=== PATIENT | female | born 1995 | race American Indian/Alaskan Native ===

== ENCOUNTER 2021-11-29 09:49 | Emergency (ER) | payer SELFPAY ==
[2021-11-29 10:45] LABS: Basophils # (Auto) 0.1 K/mm3 (0.0-0.1); Basophils % (Auto) 0.6 % (0.0-1.8); Eosinophils % (Auto) 0.3 % (0.0-4.3); Hematocrit 36.4 % (30.3-42.9); Lymphocytes % (Auto) 12.7 % (13.4-35.0); Mean Corpuscular HGB Conc 33 % (30-34); Mean Corpuscular Volume 89 fl (79-97); Monocytes # (Auto) 1.1 K/mm3 (0.0-0.8); Monocytes % (Auto) 6.8 % (0.0-7.3); Platelet Count 183 K/mm3 (140-440); Red Blood Count 4.08 M/mm3 (3.65-5.03); Red Cell Distribution Width 13.2 % (13.2-15.2)
[2021-11-29 11:01] LABS: Blood,Urine LG (Negative); Color,Urine Amber (Yellow); Urobilinogen,Urine < 2.0 mg/dL (<2.0)
[2021-11-29 11:02] LABS: Alanine Aminotransferase 14 units/L (7-56); Albumin 4.1 g/dL (3.9-5); BUN/Creatinine Ratio 9; Blood Urea Nitrogen 8 mg/dL (7-17); Calcium 9.2 mg/dL (8.4-10.2); Hemolysis Index 73
[2021-11-29 11:02] LABS: Bacteria,Urine 3+ /HPF (Negative); Bilirubin,Urine NEG (Negative); Mucus,Urine FEW /HPF
[2021-11-29 11:04] LABS: WBC,Urine > 182.0 /HPF (0.0-6.0)
[2021-11-29 11:05] LABS: HCG Qualitative,Urine Negative (Negative)
[2021-11-29 13:17] VITALS: BP 103/65
[2021-11-29] MEDS ORDERED: MORPHINE 4 MG/1 ML INJ IV ONE (14:02)
[2021-11-29] MEDS ORDERED: SODIUM CHLORIDE 0.9% 1000 ML 1,000 ML IV ONE (14:02)
--- NOTE | 2021-11-29 14:07 | Emergency Department Report ---
ED Abdominal Pain HPI - General Chief Complaint: Abdominal Pain Stated Complaint: ABD PAIN/BACK PAIN/LIGHT HEADED Time Seen by Provider: 11/29/21 13:23 Source: patient Mode of arrival: Ambulatory Limitations: No Limitations - History of Present Illness Initial Comments: 26-year-old female past medical history of GERD, reports to ER today with bilateral flank plain since yesterday with no nausea, no diarrhea, no vomiting. Patient reports that she possibly has a UTI. Patient reports urgency and dysuria. Patient denies history of kidney stones. Patient reports pain is 8 out of 10. Patient reports no other acute symptoms at this moment. Patient reports taking nothing for pain. Patient reports nothing makes it worse or better. Location: L flank, R flank Radiation: none Severity scale (0 -10): 8 - Related Data Previous Rx's Medication Instructions Recorded Last Taken Type Acetaminophen with Codeine 1 each PO Q6HR PRN 3 Days #12 tab 11/29/21 Unknown Rx [Acetaminophen-Cod #3 Tablet] Ciprofloxacin HCl [Ciprofloxacin 500 mg PO BID 7 Days #28 tab 11/29/21 Unknown Rx TAB] Allergies Allergy/AdvReac Type Severity Reaction Status Date / Time No Known Allergies Allergy Verified 11/29/21 10:01 ED Review of Systems ROS: Stated complaint: ABD PAIN/BACK PAIN/LIGHT HEADED Other details as noted in HPI Constitutional: denies: chills, fever Eyes: denies: eye pain, eye discharge, vision change ENT: denies: ear pain, throat pain Respiratory: denies: cough, shortness of breath, wheezing Cardiovascular: denies: chest pain, palpitations Endocrine: no symptoms reported Gastrointestinal: abdominal pain. denies: nausea, vomiting, diarrhea Genitourinary: urgency, dysuria, frequency. denies: discharge Musculoskeletal: denies: back pain, joint swelling, arthralgia Skin: denies: rash, lesions Neurological: denies: headache, weakness, paresthesias Psychiatric: denies: anxiety, depression Hematological/Lymphatic: denies: easy bleeding, easy bruising ED Past Medical Hx - Past Medical History Previous Medical History?: No - Medications Home Medications: Home Medications Medication Instructions Recorded Confirmed Last Taken Type Acetaminophen with Codeine 1 each PO Q6HR PRN 3 Days #12 tab 11/29/21 Unknown Rx [Acetaminophen-Cod #3 Tablet] Ciprofloxacin HCl [Ciprofloxacin 500 mg PO BID 7 Days #28 tab 11/29/21 Unknown Rx TAB] ED Physical Exam - General Limitations: No Limitations General appearance: alert, in no apparent distress - Head Head exam: Present: atraumatic, normocephalic - Eye Eye exam: Present: normal appearance - ENT ENT exam: Present: mucous membranes moist - Neck Neck exam: Present: normal inspection - Respiratory Respiratory exam: Present: normal lung sounds bilaterally. Absent: respiratory distress - Cardiovascular Cardiovascular Exam: Present: regular rate, normal rhythm. Absent: systolic murmur, diastolic murmur, rubs, gallop - GI/Abdominal GI/Abdominal exam: Present: soft, tenderness, normal bowel sounds, other (Bilateral flank pain noted with tenderness, positive CVA tenderness noted.) - Extremities Exam Extremities exam: Present: normal inspection - Back Exam Back exam: Present: normal inspection - Neurological Exam Neurological exam: Present: alert, oriented X3 - Psychiatric Psychiatric exam: Present: normal affect, normal mood - Skin Skin exam: Present: warm, dry, intact, normal color. Absent: rash ED Course Vital Signs 11/29/21 11/29/21 10:04 13:15 Temperature 99.5 F 98.9 F Pulse Rate 66 69 Respiratory 18 16 Rate Blood Pressure 94/49 Blood Pressure 103/65 [Right] O2 Sat by Pulse 100 100 Oximetry ED Medical Decision Making - Lab Data Result diagrams: 11/29/21 10:17 11/29/21 10:17 - Radiology Data [facility] [address] [place] [address] Cat Scan Report Signed Patient: CROW DE LA TORRE MR#: [id number] : 1995 Acct:[id number] Age/Sex: 26 / F ADM Date: 11/29/21 Loc: ED Attending Dr: Ordering Physician: ERROL LANDA NP Date of Service: 11/29/21 Procedure(s): CT abdomen pelvis wo con Accession Number(s): [id number] cc: ERROL LANDA NP CT ABDOMEN AND PELVIS WITHOUT CONTRAST HISTORY: flank pain - bilateral COMPARISON: None. TECHNIQUE: Axial CT images were obtained through the abdomen and pelvis without IV contrast. Sagittal and coronal reformatted images. All CT scans at this location are performed using CT dose reduction for ALARA by means of automated exposure control. FINDINGS: CT ABDOMEN: Lung Bases: Clear. Liver: No significant abnormality. Biliary: No significant abnormality. Spleen: No significant abnormality. Unenlarged. Pancreas: No significant abnormality. Adrenals: No significant abnormality. Kidneys: No significant abnormality. No evidence for nephrolithiasis, perinephric stranding or hydronephrosis. The ureters are normal course and caliber. Lymphatics: No lymphadenopathy. Vasculature: No significant abnormality. Bowel/Peritoneum: No significant abnormality. No free air. No free fluid. CT PELVIS: : No significant abnormality. Osseous Structures: No significant abnormality. Additional Findings: Small umbilical hernia containing fat. IMPRESSION: No significant abnormality. No clear explanation for bilateral flank pain. Signer Name: Marcio Reed Jr, MD Signed: 11/29/2021 3:46 PM Workstation Name: [id number] Transcribed By: TTR Dictated By: MARCIO REED JR, MD Electronically Authenticated By: MARCIO REED JR, MD Signed Date/Time: 11/29/211545 DD/ 43 TD/TT: Print Cancel - Medical Decision Making 26-year-old female bilateral flank pain since yesterday with urgency and dysuria and frequency. Bilateral flank plain tenderness noted, positive for CVA tenderness. CMP negative CBCWBC 16 UApositive nitrites large leukocytes, positive for WBC, blood, bacteria in urine. CT negative for any acute process noted, no kidney stones, no hydronephrosis. See CT report for detailed findings. Patient reports a decrease in pain from a 9 to a 6 out of 10. Based on clinical presentations and lab patient has acute pyelonephritis. Patient will be sent home with Cipro 500 twice daily for 7 days. Patient patient will receive pain medicine for home. Plan of care discussed with patient. Patient informed that if symptoms do not improve or get worse to please report back to the ER f. Patient agrees with plan of care and verbalizes understanding. Vital Signs 11/29/21 11/29/21 10:04 13:15 Temperature 99.5 F 98.9 F Pulse Rate 66 69 Respiratory 18 16 Rate Blood Pressure 94/49 Blood Pressure 103/65 [Right] O2 Sat by Pulse 100 100 Oximetry Lab Results 11/29/21 11/29/21 11/29/21 Range/Units 10:17 10:17 10:50 WBC 16.0 H (4.5-11.0) K/mm3 RBC 4.08 (3.65-5.03) M/mm3 Hgb 12.0 (10.1-14.3) gm/dl Hct 36.4 (30.3-42.9) % MCV 89 (79-97) fl MCH 29 (28-32) pg MCHC 33 (30-34) % RDW 13.2 (13.2-15.2) % Plt Count 183 (140-440) K/mm3 Lymph % (Auto) 12.7 L (13.4-35.0) % [place] % (Auto) 6.8 (0.0-7.3) % Eos % (Auto) 0.3 (0.0-4.3) % Baso % (Auto) 0.6 (0.0-1.8) % Lymph # (Auto) 2.0 (1.2-5.4) K/mm3 [place]eman # (Auto) 1.1 H (0.0-0.8) K/mm3 Eos # (Auto) 0.0 (0.0-0.4) K/mm3 Baso # (Auto) 0.1 (0.0-0.1) K/mm3 Seg Neutrophils % 79.6 H (40.0-70.0) % Seg Neutrophils # 12.7 H (1.8-7.7) K/mm3 Sodium 138 (137-145) mmol/L Potassium 4.5 (3.6-5.0) mmol/L Chloride 105.1 (98-107) mmol/L Carbon Dioxide 22 (22-30) mmol/L Anion Gap 15 mmol/L BUN 8 (7-17) mg/dL Creatinine 0.9 (0.6-1.2) mg/dL Estimated GFR > 60 ml/min BUN/Creatinine Ratio 9 % Glucose 139 H (65-100) mg/dL Calcium 9.2 (8.4-10.2) mg/dL Total Bilirubin 0.30 (0.1-1.2) mg/dL AST 19 (5-40) units/L ALT 14 (7-56) units/L Alkaline Phosphatase 53 (35-129) units/L Total Protein 7.1 (6.3-8.2) g/dL Albumin 4.1 (3.9-5) g/dL Albumin/Globulin Ratio 1.4 % Urine Color [place] (Yellow) Urine Turbidity Cloudy (Clear) Urine pH 6.0 (5.0-7.0) Ur Specific [place] 1.012 (1.003-1.030) Urine Protein 100 mg/dl (Negative) mg/dL Urine Glucose (UA) Neg (Negative) mg/dL Urine Ketones Neg (Negative) mg/dL Urine Blood Lg (Negative) Urine Nitrite Pos (Negative) Urine Bilirubin Neg (Negative) Urine Urobilinogen < 2.0 (<2.0) mg/dL Ur Leukocyte Esterase Lg (Negative) Urine WBC (Auto) > 182.0 H (0.0-6.0) /HPF Urine RBC (Auto) 97.0 (0.0-6.0) /HPF U Epithel Cells (Auto) 4.0 (0-13.0) /HPF Urine Bacteria (Auto) 3+ (Negative) /HPF Urine WBC Clumps 3+ /HPF Urine Mucus Few /HPF Urine HCG, Qual Negative (Negative) Critical care attestation.: If time is entered above; I have spent that time in minutes in the direct care of this critically ill patient, excluding procedure time. ED Disposition Clinical Impression: Pyelonephritis, Acute UTI (urinary tract infection) Disposition: 01 HOME / SELF CARE / HOMELESS Is pt being admited?: No Condition: Stable Instructions: Abdominal Pain (ED), Pyelonephritis, Adult, [id number], Pyelon ephritis, Adult, Urinary Tract Infection, Adult, [id number] Prescriptions: Acetaminophen with Codeine [Acetaminophen-Cod #3 Tablet] 1 each PO Q6HR PRN 3 Days #12 tab PRN Reason: Pain , Severe (7-10) Ciprofloxacin HCl [Ciprofloxacin TAB] 500 mg PO BID 7 Days #28 tab Referrals: MICHAEL GAITAN MD [Primary Care Provider] - 3-5 Days Time of Disposition: 16:50 Print Language: LUXEMBOURGISH
--- NOTE | 2021-11-29 15:51 | Cat Scan Report ---
CT ABDOMEN AND PELVIS WITHOUT CONTRAST HISTORY: flank pain - bilateral COMPARISON: None. TECHNIQUE: Axial CT images were obtained through the abdomen and pelvis without IV contrast. Sagittal and coronal reformatted images. All CT scans at this location are performed using CT dose reduction for ALARA by means of automated exposure control. FINDINGS: CT ABDOMEN: Lung Bases: Clear. Liver: No significant abnormality. Biliary: No significant abnormality. Spleen: No significant abnormality. Unenlarged. Pancreas: No significant abnormality. Adrenals: No significant abnormality. Kidneys: No significant abnormality. No evidence for nephrolithiasis, perinephric stranding or hydron ephrosis. The ureters are normal course and caliber. Lymphatics: No lymphadenopathy. Vasculature: No significant abnormality. Bowel/Peritoneum: No significant abnormality. No free air. No free fluid. CT PELVIS: : No significant abnormality. Osseous Structures: No significant abnormality. Additional Findings: Small umbilical hernia containing fat. IMPRESSION: No significant abnormality. No clear explanation for bilateral flank pain. Signer Name: Marcio Reed Jr, MD Signed: 11/29/2021 3:46 PM Workstation Name: [id number]
[2021-11-29] MEDS ORDERED: LIDOCAINE-MPF (1%) 10 MG/1 ML VIAL 5 ML INFILTRATI ONE (17:17)
== END 2021-11-29 18:38 | disposition home or self-care (01) ==
LOC: ED 09:49
DX: N12 Tubulo-interstitial nephritis, not specified as acute or chronic (principal); N39.0 Urinary tract infection, site not specified
CPT/HCPCS: 36415; 74176; 80053; 81001; 81025; 85025; 96361; 96372; 96374; 99284; J0696; J2270; J3490; J7030